=== PATIENT | male | born 1975 | race Asian ===

== ENCOUNTER 2017-01-13 13:05 | Emergency (ER) | payer MEDICAID ==
[~2017-01-13] VITALS: Ht 172.7 cm; Wt 81.6 kg
[2017-01-13 13:05] VITALS: BP 127/77; PULSE 77; RESP 16; TEMP 98.5; O2SAT 97
--- NOTE | 2017-01-13 13:06 | NUR ---
Patient in stable condition, alert and oriented x4. Stated was lifting things at work three hours ago when lower back began hurting. Denies any fall/trauma/known injury. No deformities noted. No other complaints/injuries per patient or noted.
--- NOTE | 2017-01-13 13:26 | NUR ---
ER Dr. Vazquez at bedside examining patient.
[2017-01-13] MEDS ORDERED: KETOROLAC TROMETHAMINE 60 MG/2 ML VIAL IM ONE (13:30)
--- NOTE | 2017-01-13 13:36 | NUR ---
Medicated for pain per MD orders.
[2017-01-13 15:25] VITALS: BP 119/79; PULSE 68; RESP 20; TEMP 97.8; O2SAT 98
--- NOTE | 2017-01-13 15:25 | NUR ---
Patient given written and verbal discharge instructions and verbalizes understanding. ER MD discussed with patient the results and treatment provided. Patient in stable condition. ID arm band removed. Rx of Motrin given. Patient educated on pain management and to follow up with PMD. Pain Scale 5/10, pt medicated prior to discharge. Opportunity for questions provided and answered.
== END 2017-01-13 15:25 | disposition home or self-care (01) ==
LOC: SED 13:05
DX: S39.012A Strain of muscle, fascia and tendon of lower back, initial encounter (principal); X50.0XXA Overexertion from strenuous movement or load, initial encounter; X50.9XXA Other and unspecified overexertion or strenuous movements or postures, initial encounter; Y93.89 Activity, other specified; Y92.89 Other specified places as the place of occurrence of the external cause; Y99.8 Other external cause status
CPT/HCPCS: 72110; 96372; 99284; J1885